=== PATIENT | male | born 1980 | race Caucasian/White ===

== ENCOUNTER 2018-01-06 11:44 | Emergency (ER) | payer BC ==
[~2018-01-06] VITALS: Ht 193 cm; Wt 125.7 kg
[2018-01-06] MEDS ORDERED: CRESTOR40 MG PO (11:57)
[2018-01-06] MEDS ORDERED: BENICAR40 MG PO (11:57)
[2018-01-06] MEDS ORDERED: LEXAPRO20 MG PO (11:58)
[2018-01-06] MEDS ORDERED: HUMALOG100 UNIT/1 SUBQ (11:58)
[2018-01-06] MEDS ORDERED: HUMIRA40 MG/0.1 SUBQ (11:59)
[2018-01-06 12:32] LABS: ABSOLUTE EOSINOPHILS 0.2 thou/uL (0.0-0.7); ABSOLUTE LYMPHOCYTES 1.1 thou/uL (0.8-5.3); ABSOLUTE MONOCYTES 0.8 thou/uL (0.0-1.2); ABSOLUTE NEUTROPHILS 3.7 thou/uL (1.6-8.1); BASOPHILS 0.8 %; EOSINOPHILS 3.1 %; HEMATOCRIT 42.8 % (42.0-52.0); HEMOGLOBIN 14.4 gm/dL (14.0-18.0); LYMPHOCYTES 19.4 %; MCH 27.8 pg (26.0-34.0); MCHC 33.7 g/dL (28.0-37.0); MCV 82.5 fL (80.0-100.0); MONOCYTES 13.6 %; MPV 9.2 fl. (7.2-11.1); NUCLEATED RBCS 0 /100WBC; PLATELET COUNT* 170 thou/uL (150-400); POLYS 63.1 %; RBC 5.19 mil/uL (4.50-6.00); RDW-CV 13.7 % (10.5-14.5); WBC 5.9 thou/uL (4.0-11.0)
[2018-01-06 12:42] LABS: ALBUMIN 3.6 g/dL (3.4-5.0); CALCIUM 8.8 mg/dL (8.5-10.1); POTASSIUM 4.2 mmol/L (3.5-5.1); TOTAL BILIRUBIN 0.2 mg/dL (<0.1-1.0); TOTAL PROTEIN 7.2 g/dL (6.4-8.2)
[2018-01-06] MEDS ORDERED: DOXYCYCLINE 10100 M1 PO (12:49)
[2018-01-06 13:00] VITALS: BP 166/107
== END 2018-01-06 13:01 | disposition home or self-care (01) ==
LOC: M.ERS 11:44
PROVIDERS: Nurse Practitioner Family
DX: M79.1 Myalgia (principal)